=== PATIENT | female | born 1955 | race Caucasian/White ===

== ENCOUNTER 2020-12-10 17:00 | Emergency (ER) | payer MEDICARE, OTHER ==
[2020-12-10] MEDS ORDERED: Lidocaine 1% 30 ML SDV INJECT ONE (18:11)
[2020-12-10] MEDS ORDERED: Bacitracin Oint 1 GM U/D Packet TOP ONE (18:11)
--- NOTE | 2020-12-10 18:22 | EDM.PDOC ---
ED HPI GENERAL MEDICAL PROBLEM - General Chief Complaint: Laceration Stated Complaint: RING FINGER ON RIGHT HAND, HOOK Time Seen by Provider: 12/10/20 18:10 Source of Information: Reports: Patient, RN, RN Notes Reviewed History Limitations: Reports: No Limitations - History of Present Illness INITIAL COMMENTS - FREE TEXT/NARRATIVE: Keely is a 65 y/o female who presents to the ED via personal vehicle due to a fish hook stuck in her right hand, second digit. The patient reports the incident happened about 30 minutes prior to her arrival to this facility. She states her had somewhat attempted to extract the hook from her finger but was unsuccessful. She is current on her TDaP with her last vaccination in 2017. Right Hand Pain Score (Numeric/FACES): 3 - Related Data Allergies Allergy/AdvReac Type Severity Reaction Status Date / Time aspirin [From Percodan] Allergy Nausea Verified 12/10/20 18:01 codeine Allergy Nausea Verified 12/10/20 18:01 oxycodone [From Percodan] Allergy Nausea Verified 12/10/20 18:01 Home Meds: Home Meds Sertraline [Zoloft] 50 mg PO DAILY 12/10/20 [History] Simvastatin [Zocor] 20 mg PO BEDTIME 12/10/20 [History] lisinopriL [Lisinopril] 20 mg PO DAILY 12/10/20 [History] ED ROS GENERAL - Review of Systems Review Of Systems: Comprehensive ROS is negative, except as noted in HPI. ED EXAM, SKIN/RASH Exam: See Below Exam Limited By: No Limitations General Appearance: Alert, No Apparent Distress Throat/Mouth: Normal Inspection, Normal Oropharynx, Normal Voice, No Airway Compromise Respiratory/Chest: No Respiratory Distress, Lungs Clear, Normal Breath Sounds, No Accessory Muscle Use, Chest Non-Tender Cardiovascular: Normal Peripheral Pulses, Regular Rate, Rhythm, No Edema, No Gallop, No JVD, No Murmur, No Rub Peripheral Pulses: 2+: Radial (L), Radial (R) Extremities: Normal Range of Motion, No Pedal Edema, Normal Capillary Refill, Arm Pain (To right hand, second digit). No: Joint Swelling, Increased Warmth, Pallor, Redness Neurological: Alert, Oriented, CN II-XII Intact, Normal Cognition, Normal Gait, Normal Reflexes, No Motor/Sensory Deficits Psychiatric: Normal Affect, Normal Mood Skin: Warm, Dry, Normal Color, No Rash, Other (Fishing hook caught in right hand, second digit; Clean with scant blood noted). No: Ecchymosis, Erythema, Increased Warmth, Mottled, Pallor, Petechiae Location, Skin: Upper Extremity, Right Characteristics: Other Associated features: Tenderness. No: Warmth, Swelling, Induration, Inflammation, Crusting, Weeping ED SKIN PROCEDURES - Foreign Body Removal Indication:: Fish Hook caught in right hand, second digit Consent Obtained:: Patient Performing Doctor:: Billie Sidhu Foreign Body Other Location Comment:: Right hand, second digit Anesthesia Type: Local Anesthesia Other:: Lidocaine 1% Findings:: Fish hook extracted Complications:: Yes (10 blade required given size of hook and location of entrance into finger) Comments:: Laceration to right finger sutured without complication. Course - Vital Signs Last Recorded V/S: Last Vital Signs Temp 97.5 F 12/10/20 18:05 Pulse 79 12/10/20 18:05 Resp 18 12/10/20 18:05 BP 178/79 H 12/10/20 18:05 Pulse Ox 99 12/10/20 18:05 - Orders/Labs/Meds Meds: Medications Discontinued Medications Generic Name Dose Route Start Last Admin Trade Name Freq PRN Reason Stop Dose Admin Bacitracin 1 dose 12/10/20 18:11 12/10/20 18:22 Bacitracin Oint 1 Gm U/D Packet TOP 12/10/20 18:12 1 dose ONETIME ONE Administration Lidocaine HCl 30 ml 12/10/20 18:11 12/10/20 18:21 Lidocaine 1% 30 Ml Sdv INJECT 12/10/20 18:12 30 ml ONETIME ONE Administration - Re-Assessments/Exams Free Text/Narrative Re-Assessment/Exam: 12/10/20 Fish hook removed. Incision care reviewed with patient as well as red flag signs and symptoms which would warrant reevaluation. Patient verbalized understanding and agreement with the plan of care. Departure - Departure Time of Disposition: 18:45 Disposition: Home, Self-Care 01 Condition: Good Clinical Impression: Removal of foreign body Fish hook injury of finger Qualifiers: Encounter type: initial encounter Laterality: right Qualified Code(s): S69.91XA - Unspecified injury of right wrist, hand and finger(s), initial encounter - Discharge Information Instructions: Sutured Wound Care Forms: ED Department Discharge Additional Instructions: 1.) Follow up with any primary care facility for removal of sutures. 2.) You may take ibuprofen (Advil/Motrin) 400mg every six hours, as pain and swelling persists. You may also take acetaminophen (Tylenol) 650mg every six hours, as pain persists. You may stagger these medications so you are receiving a dose every three hours. 3.) Keep wound covered for the next 24 hours; then open to air, as tolerated. Change bandage should it become soiled. Sepsis Event Note (ED) - Evaluation Sepsis Screening Result: No Definite Risk
== END 2020-12-10 18:50 | disposition home or self-care (01) ==
LOC: DL.ED 17:00
DX: S60.450A Superficial foreign body of right index finger, initial encounter (principal); Z88.6 Allergy status to analgesic agent; Z88.5 Allergy status to narcotic agent; Z79.899 Other long term (current) drug therapy; W45.8XXA Other foreign body or object entering through skin, initial encounter
CPT/HCPCS: 10120; 99282; 99283-25